=== PATIENT | female | born 1975 | race Hispanic/Latino ===

== ENCOUNTER 2022-06-13 05:30 | Day surgery (SDC) | payer BC ==
[2022-06-12 09:33] VITALS: BMI 32.9
[2022-06-13] MEDS ORDERED: Famotidine/PF 20 mg/2ml Vial ONE (06:27)
[2022-06-13] MEDS ORDERED: CeleCOXIB 100 MG CAP ONE (06:28)
[2022-06-13] MEDS ORDERED: Gabapentin 300 MG CAP ONE (06:29)
[2022-06-13] MEDS ORDERED: Bupivacaine HCl 0.5%/Epinephrine 1:200,000/PF 30 ml Vial ONE (06:42)
[2022-06-13] MEDS ORDERED: CEFAZOLIN 2 GM VIAL ONE (07:00)
[2022-06-13] MEDS ORDERED: Fentanyl 100 MCG/2 ML VIAL ONE ×3 (07:11→09:53)
[2022-06-13] MEDS ORDERED: SUGAMMADEX SODIUM 200 MG/2 ML VIAL ONE (07:12)
[2022-06-13] MEDS ORDERED: Midazolam HCl 2 mg/2 ml Vial ONE (07:13)
[2022-06-13] MEDS ORDERED: PROPOFOL 20 ML ONE (07:16)
[2022-06-13] MEDS ORDERED: Lidocaine 2% PF 5 ML VIAL ONE (07:16)
[2022-06-13] MEDS ORDERED: Rocuronium Bromide 10 MG/ML (10ML VIAL) ONE (07:16)
[2022-06-13] MEDS ORDERED: PHENYLEPHRINE-NS 100 MCG/ML 10 ML SYRINGE ONE (07:45)
[2022-06-13] MEDS ORDERED: ePHEDrine Sulfate 50 MG/10 ML VIAL ONE (07:48)
[2022-06-13] MEDS ORDERED: Dexamethasone 4 mg/ml Vial ONE (07:55)
[2022-06-13] MEDS ORDERED: Metoclopramide HCl 10 MG/2 ML VIAL ONE (07:55)
[2022-06-13] MEDS ORDERED: Ondansetron PF 4 MG/2 ML Vial ONE (07:55)
== END 2022-06-13 11:20 | disposition home or self-care (01) ==
LOC: CSHSDC 05:30
PROVIDERS: ATTEND Obstetrics & Gynecology
PROC: 0UT94ZZ Resection of Uterus, Percutaneous Endoscopic Approach (ICD-10-PCS; principal; 2022-06-13)
PROC: 0UB94ZZ Excision of Uterus, Percutaneous Endoscopic Approach (ICD-10-PCS; principal; 2022-06-13)
PROC: 0UT74ZZ Resection of Bilateral Fallopian Tubes, Percutaneous Endoscopic Approach (ICD-10-PCS; principal; 2022-06-13)
DX: D25.9 Leiomyoma of uterus, unspecified (principal); N80.03 Adenomyosis of the uterus; N81.4 Uterovaginal prolapse, unspecified; N92.1 Excessive and frequent menstruation with irregular cycle; D64.9 Anemia, unspecified; N92.0 Excessive and frequent menstruation with regular cycle; Z87.891 Personal history of nicotine dependence; Z79.899 Other long term (current) drug therapy
CPT/HCPCS: 88305; 88307; J1100; J2001; J2250; J2405; J2704; J2765; J3010; Q9968; S0028